=== PATIENT | female | born 1995 | race Caucasian/White ===

== ENCOUNTER 2020-07-11 16:11 | Emergency (ER) | payer OTHER ==
[2020-07-11 20:29] LABS: BILIRUBIN NEGATIVE (NEGATIVE); BLOOD TRACE-INTACT Ery/uL (NEGATIVE); COLOR YELLOW (YELLOW); GLUCOSE (U) NORMAL (NORMAL); LEUKOCYTES 1+ Leu/uL (NEGATIVE); NITRITE NEGATIVE (NEGATIVE); PROTEIN NEGATIVE (NEGATIVE); UROBILINOGEN 0.2 mg/dL (0.2-1.0); pH 6.5 (5.0-9.0)
[2020-07-11 21:10] LABS: CLARITY SLIGHTLY HAZY (CLEAR)
[2020-07-11 21:12] LABS: BACTERIA 1+
[2020-07-12] MEDS ORDERED: AUGMENTIN 875-1 EACH PO (00:53)
[2020-07-12] MEDS ORDERED: NORCO 5-325 TA1 EACH PO (00:53)
== END 2020-07-12 01:16 | disposition home or self-care (01) ==
LOC: FER 16:11
PROVIDERS: Emergency Medicine
DX: K64.4 Residual hemorrhoidal skin tags (principal); N39.0 Urinary tract infection, site not specified
CPT/HCPCS: 81001; 99283

== ENCOUNTER 2020-07-16 09:56 | Day surgery (SDC) | payer OTHER ==
[~2020-07-16] VITALS: Ht 157.5 cm; Wt 81.6 kg
[~2020-07-16 09:56] MED LIST: AUGMENTIN 875-1 EACH PO; NORCO 5-325 TA1 EACH PO
[2020-07-16] MEDS ORDERED: ZOLOFT50 MG PO (10:13)
[2020-07-16] MEDS ORDERED: COLACE100 MG PO (10:13)
[2020-07-16 10:51] LABS: HCT 32.5 % (37.0-47.0); HGB 10.3 g/dl (12.5-16.0); MCH 27.9 pg (25.0-31.0); MCHC 31.7 g/dL (32.0-36.0); MCV 88.1 fL (78.0-100.0); RBC 3.69 M/uL (4.20-5.40); RDW 14.3 % (11.5-14.0); WBC 11.6 K/uL (4.0-10.5)
--- NOTE | 2020-07-16 11:00 | NUR ---
1055 PATIENT TRANSFERRED PER STRETCHER TO OB ROOM 4. REPORT TO SHANDA GAN RN.
== END 2020-07-16 17:21 | disposition home or self-care (01) ==
LOC: FAS 09:56
PROVIDERS: Anesthesiology
DX: O22.43 Hemorrhoids in pregnancy, third trimester (principal); Z3A.38 38 weeks gestation of pregnancy; Z87.891 Personal history of nicotine dependence; Z79.2 Long term (current) use of antibiotics; Z79.899 Other long term (current) drug therapy; Z20.822 Contact with and (suspected) exposure to COVID-19
CPT/HCPCS: 36415; J3010; J7120; U0002

== ENCOUNTER → 2020-09-26 | Day surgery (SDC) | payer OTHER ==
[~2020-09-26] VITALS: Ht 157.5 cm; Wt 72.6 kg
[~2020-09-26] MED LIST changes: +COLACE100 MG PO; +ZOLOFT50 MG PO
[2020-09-26 07:20] LABS: HCG (URINE) SCREEN NEGATIVE (NEGATIVE)
== END | disposition home or self-care (01) ==
LOC: FAS 06:41
PROVIDERS: Anesthesiology
DX: K64.1 Second degree hemorrhoids (principal); K64.4 Residual hemorrhoidal skin tags
CPT/HCPCS: 84703; J1100; J2704; J7120